=== PATIENT | male | born 1955 | race Caucasian/White ===

== ENCOUNTER 2019-01-27 09:54 | Observation (INO) ==
[2019-01-27] MEDS ORDERED: fentaNYL citrate 100 MCG/2 ML VIAL ONE ×3 (10:23→11:33)
[2019-01-27] MEDS ORDERED: NiCARDipine HCL INJ 2.5 MG/ML 10 ML AMP ONE (10:23)
[2019-01-27] MEDS ORDERED: HEPARIN (PORCINE) 1000 UNIT/ML 10 ML (CATH LAB USE ONLY) ONE ×2 (10:23→11:04)
[2019-01-27] MEDS ORDERED: MIDAZOLAM HCL 1 MG/ML 2ML VIAL ONE ×5 (10:24→11:33)
[2019-01-27] MEDS ORDERED: NITROGLYCERIN/D5W 100MCG/ML 20ML SYR ONE (10:24)
--- NOTE | 2019-01-27 10:30 | History & Physical Bridge Note ---
Date of Service January 27, 2019 History & Physical Bridge Note I have examined the patient, reviewed the History & Physical and in the interval since the performance of the History & Physical I have noted the following changes of clinical significance: no changes noted
--- NOTE | 2019-01-27 10:31 | Pre Anesthesia Assessment ---
Date of Service January 27, 2019 Pre Sedation Assessment Vital Signs Temp Pulse Resp BP Pulse Ox 01/27/19 10:07 98.1 F 68 14 190/104 H 97 Cardiovascular RRR, no murmur, no edema Respiratory normal respiratory effort, lungs clear to auscultation Pre-Sedation Airway Assessment Smoking Status: Current every day smoker Hx Sleep Apnea: No Hx Difficult Intubation: No Short, Thick Neck: No Thyromental Distance: > or= 3.5 Finger Breadths Oral Cavity: + Dentures Mallampati Class: III ASA: ASA3 NPO Status Date of Last Intake of Fluids: 01/27/19 Time of Last Intake of Fluids: 07:00 Last Oral Intake of Fluids Comment: sips with pills Date of Last Intake of Solid Food: 01/26/19 Time of Last Intake of Solid Foods: 22:00 Procedure Planning Contraindications for Sedation: none Current Medications Reviewed: Yes Notes The planned sedation has been discussed with the patient. Informed Consent was obtained. I have identified the patient, determined the appropriateness of sedation and have assessed the patient immediately prior to the procedure. All medicine(s) and interventions are by my order.
[2019-01-27] MEDS ORDERED: ADENOSINE IV SOLN 3 MG/ML 20 ML VIAL IV ONE (11:04)
[2019-01-27] MEDS ORDERED: CLOPIDOGREL BISULFATE 300 MG TAB ONE (12:09)
--- NOTE | 2019-01-27 12:10 | Post Anesthesia Assessment ---
Date of Service January 27, 2019 Post Sedation Assessment Vital Signs Temp Pulse Resp BP Pulse Ox 01/27/19 10:07 98.1 F 68 14 190/104 H 97 Recovery Score Activity: Moves 4 extremities Respiration: Deep Breath/Cough Circulation: +/-20% PreAnes Value Consciousness: Fully Awake Oxygen Saturation: O2 needed for >90% Discharge Sedation Level of Care: Fast Track Phase II Post Sedation Plan On clinical assessment, the patient appears to have tolerated the sedation without complications. Patient is recovering as anticipated. Patient will continue to be monitored by nursing and may be discharged when sedation discharge criteria are met per below protocol. Upon Completions of procedure and additional 15 minutes continue every 5 minute vital signs and the P.A.R. score; then discharge to a Phase I or Fast Track to Phase II per the following guidelines: * Discharge Patient to appropriate Phase II area if PAR is 8 or greater or return to pre- procedure baseline. The post - procedure orders will be as directed. * If PAR score is less than 8 or not return to pre-procedure baseline then patient will follow Phase I monitoring till PAR is reached for Phase II. The Phase I may be done in procedure room or may call to secure a Phase I area. * If naloxone or flumazenil are used for reversal, hold in Phase I for continued monitoring from when last reversal dose was given for a minimum of 60 minutes or longer pending the nurse and/or physician discretion of patient condition before discharge to Phase II. Please call the Sedation Physician to re-evaluate and complete post-note for discharge to Phase II area. Do NOT discharge from procedure sedation or Phase 1 until post- sedation evaluation note is complete by procedure /sedation MD Sedation Discharge Instructions to be given to the patient at discharge to home.
[2019-01-27] MEDS ORDERED: ACETAMINOPHEN 325 MG TAB PO PRN (12:14)
[2019-01-27] MEDS ORDERED: ONDANSETRON INJ 2 MG/ML 2 ML VIAL IV PRN (12:14)
--- NOTE | 2019-01-27 12:14 | Cardiac Catheterization ---
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 Cardiac Status Clinical evaluation leading to the procedure CAD Presenation: Positive Stress Test Anginal Classification: CCS III Heart Failure: No Cardiogenic Shock within 24 Hours: No Cardiac Arrest within 24 Hours: No Imaging Studies Past 6 Months: Yes Stress Studies Past 6 Months: Yes Standard Exercise Test: Yes - Positive Diagnostic Physicians Name: Michael Huerta MD Status: Elective Closure Device Percutaneous Entry Location: Radial Closure Device: Radial Band Recommendations: PCI without planned CABG PCI Indication: + Stress Test and Unstable Angina Lesion Segment Name: mid RCA Culprit Artery: Yes Stenosis Prior to Rx (%): 90 Chronic Total Occlusion: No IVUS: No FFR: No Pre-Procedure WENDY Flow: 3 Previously Treated Lesion: No Lesion Complexity: Non-High/Non-C Lesion Length (mm): 15 Thrombus Present: No Bifurcation Lesion: No Guidewire Across Lesion: Stenosis Post-Procedure (%): 0 Post-Procedure WENDY Flow: 3 Devices(s) Deployed: Yes Yes Lesion #2 Segment Name: Ostial OM1 Culprit Artery: Yes Stenosis Prior to Rx (%): 95 Chronic Total Occlusion: No IVUS: No FFR: No Pre-Procedure WENDY Flow: 3 Previously Treated Lesion: No Lesion Complexity: Non-High/Non-C Lesion Length (mm): 12 Thrombus Present: No Bifurcation Lesion: Yes Guidewire Across Lesion: Yes Stenosis Post-Procedure (%): 0 Post-Procedure WENDY Flow: 3 Devices(s) Deployed: Yes Intraprocedure Events Significant Disection: No Perforation: No Cardiac Cath Procedure Full Procedure Date January 27, 2019 Pre-Procedure Diagnosis Pre-Procedure Diagnosis: Angina and Positive Stress Test AUC Score AUC Score: 7 Post-Procedure Diagnosis Post-Procedure Diagnosis: Severe CAD, Successful PCI and Normal Intracardiac Pressures Procedure(s) Performed Procedure(s) Performed: Coronary Angiography, Left Heart Cath, Drug Eluting Stent and Fractional Flow [place] [employer] Michael Huerta MD Fur Glazer(s) Rikki Estimated Blood Loss Estimated Blood Loss: 20 Medication(s) Medication(s): Clopidogrel, Fentanyl, Heparin, Lidocaine 1%, Nicardipine, Nitroglycerin and Versed Summary of Findings Indication: Abnormal stress test, accelerating angina Access: 6Fr right radial artery slender Catheters: [place], EBU 3.5 guide, JR 4 guide Findings: LM - Moderate caliber, 30-40% distal stenosis LAD - Large caliber vessel, 20-30% proximal stenosis, 30-40% mid stenosis at take-off of 2nd septal. Distal vessel wraps around apex without significant disease. Small 1st diagonal subtotally occluded. Moderate 2nd diagonal with 60-70% ostial and mid segment disease, superior branch off D2 with 90% ostial stenosis. Circumflex - Moderate caliber vessel, 30% proximal stenosis, mid segment luminal irregularities. High OM1 with 95+% hazy, ostial stenosis. RCA - Dominant, 30-40% proximal to mid disease. 90% focal mid segment disease. Distal luminal irregularities. PDA, PLBs without significant disease. LVEDP -9 -- FFR of distal LM -- LM cannulated with EBU 3.5 guide BMW wire placed into distal LAD ACIST catheter placed into mid LAD Pd/Pa 0.97 FFR 0.88 -- PCI -- Antithrombotic therapy: Heparin, Clopidogrel Procedure: BMW wire removed from LAD and placed into OM1 [employer] 50 wire placed into distal circumflex. OM1 lesion predilated with 2.5 compliant balloon Dilated lesion stented with 2.5 x 12 [place] YVETTE Stent post-dilated with stent balloon. IC vasodilators administered for spasm Post procedure WENDY 3 flow, stent well expanded with minimal residual stenosis and no apparent cardiac complications. RCA cannulated with JR 4 guide BMW wire placed into distal RCA/PLB Mid RCA dilated with 2.5 balloon. Mid RCA stented with 3.5 x 15 [place] YVETTE Stent post dilated with 3.5 NC. Post procedure WENDY 3 flow, stent well expanded with minimal residual stenosis and no apparent cardiac complications. Arterial Closure: TR Band Summary: 1. Severe multi-vessel coronary artery disease - 90% mid RCA - 95% ostial OM1 - 30-40% left main (FFR 0.88). - 70% ostial 2nd diagonal 2. Normal intracardiac filling pressure 3. Successful PCI of high OM1 with single YVETTE (2.5 x 12 [place]). 4. Successful PCI of mid RCA with single YVETTE (3.5 x 15 [place]). 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 Maximize antianginal therapy for residual small branch vessel disease involving diagonals. Consult cardiac Rehab Hemodynamics Rest Ao:: 131/72/102 Final Ao: 133/69/96 LV: 116/9 Recommendations Recommendations: PCI without planned CABG Specimens Specimens: None Radiation Exposure (mGy) 3167 Contrast (mls) 165 Fluids (cc crystalloids) Fluids (cc crystalloids): 125 Drains Drains: None Anesthesia Moderate Procedural Complication(s) None Disposition PCU I attest to the content of the Intraoperative Record and any orders documented therein. Any exceptions are noted below.
[2019-01-27] MEDS ORDERED: OXYCODONE/ACETAMINOPHEN 5mg/325mg TAB PO PRN (12:18)
[2019-01-27] MEDS: SODIUM CHLORIDE 0.9% 1000ML 1,000 ML IV SCH ×2 (15:18→23:50)
[2019-01-27] MEDS: AMLODIPINE BESYLATE 5 MG TAB PO SCH (15:52)
[2019-01-28] MEDS: AMLODIPINE BESYLATE 5 MG TAB PO SCH (08:22)
[2019-01-28] MEDS ORDERED: PANTOprazole 40 MG TAB PO SCH (09:00)
[2019-01-28] MEDS ORDERED: MULTIVITAMIN TAB PO SCH (09:00)
[2019-01-28] MEDS ORDERED: AMLODIPINE BESYLATE 5 MG TAB PO SCH (09:00)
[2019-01-28] MEDS ORDERED: ATORVASTATIN 40 MG TAB PO SCH (09:00)
[2019-01-28] MEDS ORDERED: ASPIRIN 81 MG ECTAB PO SCH (09:00)
[2019-01-28] MEDS ORDERED: METOPROLOL SUCC 50MG EXT REL TAB PO SCH (09:00)
[2019-01-28] MEDS ORDERED: CLOPIDOGREL BISULFATE 75 MG TAB PO SCH (09:00)
--- NOTE | 2019-01-28 09:09 | Discharge Summary ---
Date of Service January 28, 2019 Admission HPI Per Admitting Provider Mr. Crane is a 63 year old male with a medical history significant for hypertension, dyslipidemia, GERD and tobacco use. Recently was seen in our office for evaluation of chest pain and abnormal stress ECG. Patient denies history of cardiovascular disease. Over the pas 6-8 months he developed exertional chest discomfort and shortness of breath. Chest pain is in the center of his chest. Initially symptoms only occurred with more strenuous exertion such a cutting grass. Symptoms have progressed and he now experienced them when walking up a flight of stairs or out to his mail box. Symptoms resolve in about 15 minutes of rest. He does not experience chest pain or dyspnea at rest. No orthopnea, PND or edema. No palpitations, lightheadedness, near syncope or syncope. No abnormal bleeding. Due to his symptoms PCP ordered a stress electrocardiogram which was performed on 01/22/19. This was positive with [address] depressions resolving 4 min into recovery. Patient had hypertensive response to exercise with peak BP to 240s. Nonlimiting exertional chest burning pain with peak stress. Exercised 6 min achieving 7 METS and 69% MPHR. Admitted on 01/27/19 after cardiac catheterization with PCI. Admission Exam (Per Admitting) Constitutional General: No acute distress, comfortable. HEENT: Head is normal. PERRLA. EOMI. Sclerae anicteric. Ears, nose and throat unremarkable. Mucous membranes moist. Neck: Normal carotid upstrokes, no bruits. No appreciable JVD. Lungs: Clear to auscultation bilaterally without rales, rhonchi or wheezes. Cardiac: Regular rate and rhythm. S1-S2 normal. No appreciable murmur, gallop or rub. Abdomen: Soft and nontender. Bowel sounds normal. No mass or organomegaly. No abdominal bruit. Extremities/vascular: Well perfused. No peripheral edema. Radial, DP and PT pulses 2+ bilaterally Skin: No rash or abnormal lesions. Normal turgor. Neurologic: Nonfocal Psychiatric: Affect appropriate. Alert and oriented. Discharge Data Consultations 01/27/19 12:17 Consult Cardiac Rehabilitation Routine Procedures Performed Operation Date: 01/27/19 11:00 Actual Procedures s Cineradiography w/Routine Exam - Venkatesh Huerta MD p Cath, Left with Cors and Vent - Venkatesh Huerta MD s Drug Eluting Stent SGl Vessel - Venkatesh Huerta MD s Drug Eluting Stent each ADDTL Vessel - Venkatesh Huerta MD Hospital Course (1) Coronary artery disease: --Severe multivessel CAD (90% mid RCA, 95% ostial OM1, 30-40% left main (FFR 0.88), 70% ostial 2nd diagonal); residual small branch disease --Post successful PCI of high OM1 (2.5 x 12 [place]) and mid RCA (3.5 x 15 [place]arte) 2. Hypertension--BP remains high 3. Dyslipidemia 4. Ongoing tobacco use Patient post cardiac catheterization 01/27/19 in the setting of exertional chest pain and abnormal stress ECG. Underwent successful PCI of high OM1 and mid RCA. Currently chest pain free. Right radial wrist access site without hematoma. Distal pulse and sensation intact. BP has been elevated and he was started on amlodipine. --OK to discharge home today with followup in our office in 2 weeks --Dual antiplatelet therapy with ASA and clopidogrel for minimum of 6 months; likely indefinitely given multivessel disease --High intensity statin --Continue metoprolol succinate 100 mg daily and amlodipine 10 mg daily, monitor BP at home --Smoking cessation, patient has no desire to quit at this time --Consult cardiac rehab
[2019-01-28] MEDS ORDERED: ENOXAPARIN INJ 40 MG/0.4 ML SYR SQ SCH (11:25)
[2019-01-29] MEDS ORDERED: AMLODIPINE BESYLATE 5 MG TAB PO SCH (09:00)
== END 2019-01-28 10:00 | disposition home or self-care (01) ==
LOC: CC 09:54 → 2S 09:54

== ENCOUNTER 2023-12-06 13:36 | Observation (INO) ==
[2023-12-06] MEDS: MAGNESIUM SULFATE / D5W 1 GM/100 ML BAG IV SCH ×2 (14:50→17:15)
[2023-12-06 15:06] LABS: Hematocrit (blood only) 43.9 % (42.0-52.0); Hemoglobin 15.4 g/dl (14.0-18.0); Mean Corpuscular Hemoglobin 32.1 pg (25.0-34.0); Mean Corpuscular Hgb Conc 35.1 g/dL (32.0-36.0); Mean Corpuscular Volume 91.5 fL (80.0-100.0); Mean Platelet Volume 11.8 fL (9.4-12.4); Platelet Count 209 K/uL (130-400); RDW Coefficient of Variation 12.7 % (11.5-14.5); RDW Standard Deviation 42.7 fL (36.4-46.3); White Blood Count 15.11 K/ul (4.8-10.8)
--- NOTE | 2023-12-06 15:19 | History & Physical Report ---
Date of Service December 06, 2023 Assessment & Plan (1) Hypomagnesemia: Plan: Critically low magnesium at 0.7 on 12/05 Patient reports he is currently asymptomatic Recent medication change: started on metformin on 11/19 and reports he has been having diarrhea since While he was given magnesium supplements for low mag prior to this (1.0 on 11/08), he also reports he takes omeprazole daily ?Renal wasting; urine electrolytes ordered, pending Magnesium sulfate 1 g IV x 5 (to be given via extended infusion) Magnesium oxide 400mg p.o. BID Hold omeprazole Trend Mag q4h for now A.m. CBC, BMP, Mag (2) Diarrhea: Plan: No recent antibiotic use or hospitalizations Hold metformin, and if diarrhea persists would obtain stool studies (3) Type 2 diabetes mellitus: Plan: Last A1c at 8.2% on 11/09/2023 SSI; with target BSG range 110-140mg/dL, CF 40, carb ratio 13 T2DM diet BSG ACHS Adjust regimen as needed (4) Leukocytosis: Plan: Leukocytosis at 15.11 with a lymphocytic predominance; afebrile No fever or infectious symptoms Unclear etiology (5) Hypertension: Plan: Continue isosorbide mononitrate, amlodipine, and metoprolol (6) Hyperlipidemia: Plan: Continue atorvastatin (7) COPD with emphysema: Plan: Continue home inhalers (8) H/O heart artery stent: Plan: Continue clopidogrel (9) Paroxysmal atrial fibrillation: Plan: Rate controlled on arrival Continue apixaban (10) Current every day smoker: Plan Disposition: Obs - Admit to [facility] telemetry DNR/DNI Heart healthy, T2DM diet VTE PPx: On apixaban History of Present Illness Chief Complaint: Abnormal labs/diagnostic testing Primary Care Provider: Xiomara Horner Sweta Alberto is a pleasant 68-year-old male with PMH of CAD s/p heart stent, T2DM, COPD, multiple lung nodules, tobacco use, HLD, and HTN. He presented on 12/05 at the behest of his PCP for critically low magnesium levels (0.9 on 12/04). No prior history of hypomagnesemia. Patient took all of his regular morning medications today. He has been on Nexium/omeprazole for the past 25 years. The only recent change in medication was that he was started on metformin a couple weeks ago as well as magnesium supplements. He reports he has been having diarrhea ever since starting this medication. No recent antibiotic use. He reports that he does have a liquidy stool, as well as intermittent formed stool. For instance, he had a bowel movement this morning that was formed, and then 20 minutes later he had diarrhea. Patient is a current everyday tobacco cigarette smoker; less than 1 PPD. No recent alcohol use. No supplemental oxygen at baseline. No sick contacts. No CPAP at night. Additionally, he does have GARCIA and productive cough, which he attributes to his emphysema. Patient is h ypertensive at 147/82 and mildly hypothermic at 36.0 C at time admission; vitals otherwise stable. ED course: Magnesium sulfate 1 g IV x 2 ROS: Patient endorses mild CHAMBERLAIN intermittently, intermittent CP (once per week; he describes it as very "minor"), GARCIA, productive cough (clear), diarrhea (since started taking metformin) Patient denies fever, chills, night-sweats, difficulty swallowing, dizziness, lightheadedness, SOB at rest, abdominal pain, N/V, melena, blood in the urine/stool, or neuropathy in the arms or legs. Allergies Allergy/AdvReac Type Severity Reaction Status Date / Time adhesive tape Allergy "tears my Verified 12/06/23 12:55 skin off" No Known Drug Allergies Allergy Verified 12/06/23 12:55 Home Medications Medication Instructions Recorded Confirmed Type amlodipine 10 mg tablet 10 mg PO QAM 08/16/22 12/06/23 History atorvastatin 80 mg tablet 80 mg PO HS #90 tabs 12/05/22 12/06/23 Rx isosorbide mononitrate 60 mg 60 mg PO QAM #90 tabs 02/14/23 12/06/23 Rx tablet,extended release 24 hr apixaban 5 mg tablet (Eliquis) 5 mg PO BID #180 tabs 03/16/23 12/06/23 Rx omeprazole 20 mg capsule,delayed 20 mg PO QAM #90 caps 09/13/23 12/06/23 Rx release umeclidinium 62.5 mcg-vilanterol 1 inh inhalation DAILY 3 months 09/25/23 12/06/23 Rx 25 mcg/actuation powdr for with 3 refills 90 days #180 ea inhalation (Anoro Ellipta) clopidogrel 75 mg tablet 75 mg PO QAM #90 tabs 11/30/23 12/06/23 Rx ezetimibe 10 mg tablet 10 mg PO QAM 12/06/23 12/06/23 History famotidine 40 mg tablet 40 mg PO DAILY #90 tabs 12/06/23 12/06/23 Rx metformin 500 mg tablet,extended 500 mg PO BIDM 12/06/23 12/06/23 History release 24 hr metoprolol succinate 100 mg 100 mg PO QAM 12/06/23 12/06/23 History tablet,extended release 24 hr Past Med/Surg History Problem List Diarrhea Paroxysmal atrial fibrillation Leukocytosis Hypomagnesemia Encounter for cosmetic procedure Type 2 diabetes mellitus Encounter for pre-operative examination Coronary artery disease Dizziness Hypertension Hyperlipidemia Current every day smoker Chronic low back pain Degenerative disc disease, lumbar Multiple lung nodules Nicotine dependence, cigarettes, uncomplicated Multiple pulmonary nodules COPD with emphysema Exertional shortness of breath Obesity Hypersomnia H/O heart artery stent 2019, x2 stents, [facility] Medical History Scoliosis Hx of renal calculi Ocular migraine Emphysema lung COPD (chronic obstructive pulmonary disease) Hyperlipidemia Hx of chest pain Atrial fibrillation Hypertension GERD (gastroesophageal reflux disease) Surgical History Hx of tooth extraction History of esophagogastroduodenoscopy (EGD) Hx of cardiac catheterization Family History Brother Colorectal cancer Prostate cancer Father Myocardial infarction Denies family history of Ovarian cancer Breast cancer Social History Smoking Status: Current every day smoker Tobacco Type: Cigarettes Age Started Using Tobacco: 16; packs per day: 0.75; Cigarettes Per Day: 16; Second Hand Exposure: No; Do You Dip or Chew Tobacco: No; Hx Alcohol Use: Yes Hx Substance Use: No Preferred Language: Nigerien Communication Ability: Effective Visual Impairment: Limited Hearing Ability: Normal 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 Beliefs That Will Affect Care: None marital status: Current Living Situation: Spouse current occupational status: retired current occupation: retired Feels Safe at Home: Yes Childhood Exposure to Second-Hand Smoke: Yes Dental Care, Regularly: No Physical Activity Frequency: Does not Exercise Seatbelt Use: always Sunscreen Use: No Assistive Devices: Glasses and Other Review of Systems Review of Systems: See HPI above Physical Exam Physical Exam: General: no acute distress; non-toxic appearing; well-nourished; cooperative HEENT: normocephalic, atraumatic; no scleral icterus; PERRLA w/ EOMs intact; vision and hearing grossly intact Neck: supple; no lymphadenopathy; trachea midline Skin: warm, dry without signs of tenting; no cyanosis; no rashes, bruising, lesions, or erythema noted CV: chest wall NTP; RRR; S1/S2 normal; no murmurs/rubs/gallops; pulses intact and symmetric at radial, DP, and PT Lungs: no acute respiratory distress; symmetrical chest wall expansion; clear breath sounds across all lung arzola w/o adventitious sounds; no wheezing ABD: Soft, NTP; BS present; no rebound/guarding; no distention MSK: no tics or fasciculations; no edema noted in the LEs b/l, nonerythematous Neuro: A&Ox3; normal mood and affect; fluent speech; no focal deficits; sensation grossly intact in the LEs b/l Results & Data Results & Data Vital Signs (Past 12 Hours) Vital Signs Temp Pulse Resp BP Pulse Ox O2 Del Method 12/06/23 13:51 36.0 C L 79 16 147/82 H 94 Room Air Code Status & VTE Plan Code Status DNR/DNI VTE Prophylaxis Plan VTE Prophylaxis will be ordered: Yes Supervising Physician Co-Signing Physician Notes Patient seen and examined, chart reviewed, case discussed with Bart Pond PA-C and I agree with the assessment and plan as above except as otherwise noted Labs and images reviewed 68-year-old male with a past medical history of COPD, type II DM, CAD history PCI who presents on referral for critically low magnesium levels. Patient reports he has had some intermittent loose diarrhea since starting metformin; however his hypomagnesemia preceded this and is stools have been loose but not every day. Degree of hypomagnesemia is disproportionate to his diarrhea, although this may be contributing. He has been on a PPI for GERD, will treat with Pepcid twice daily and attempt to down titrate his PPI due to hypomagnesemia. He is not on his loop/thiazide diuretics. Does have diabetes but this does not appear uncontrolled, last A1c was reasonable and BSG less than 100 on admission. Will obtain Magnesium levels to assess for potential renal wasting; this will be at least partially elevated due to his IV magnesium repletion. Remaining 3g IV given over extended duration to minimize renal losses. Agree w/ above PG Care Time/CCT Total # of Minutes Spent Total Time Spent with Patient: Total time spent is greater than 50% in coordination of care (as documented) at patient's floor/unit and/or counseling patient: Coding [place] [address] INT INP/OBS CARE 3/75MIN Patient Type Established Medical Decision Making High Complexity Diagnoses Hypomagnesemia E83.42 Diarrhea R19.7 Type 2 diabetes mellitus E11.9 Leukocytosis D72.829 Hypertension I10 Hyperlipidemia E78.5 COPD with emphysema J43.9 H/O heart artery stent Z95.5 Paroxysmal atrial fibrillation I48.0 Current every day smoker F17.200
[2023-12-06 15:28] LABS: Basophils # (auto) 0.08 K/uL (0.00-0.20); Basophils % (auto) 0.5 %; Eosinophils # (auto) 0.18 K/uL (0.00-0.50); Eosinophils % (auto) 1.2 %; Immature Granulocytes # (auto) 0.07 K/uL (0.01-0.20); Immature Granulocytes % (auto) 0.5 %; Lymphocytes # (auto) 5.06 K/uL (1.20-3.40); Lymphocytes % (auto) 33.5 %; Monocytes # (auto) 1.84 K/uL (0.11-0.59); Monocytes % (auto) 12.2 %; Neutrophils # (auto) 7.88 K/uL (1.40-6.50); Neutrophils % (auto) 52.1 %
[2023-12-06 16:25] LABS: Calcium 8.1 mg/dl (8.6-10.3); Potassium 3.4 mmol/L (3.5-5.1)
[2023-12-06 16:31] LABS: BUN Creatinine Ratio 12.8 (10-20); Creatinine Clr Calc Pharmacy 111.4 ml/min; Est GFR (African American) 104.7 ml/min; Est GFR (Non-African American) 90.4 ml/min
[2023-12-06 16:34] LABS: Albumin Level 5.1 gm/dl (3.4-5.0); Bilirubin,Total 0.8 mg/dl (0.2-1.0); Globulin 2.6 gm/dl (2.5-4.0); Magnesium 0.7 mg/dl (1.7-2.4); Total Protein 7.7 gm/dl (6.0-8.3)
--- NOTE | 2023-12-06 17:14 | Emergency Department Note ---
History of Present Illness General Chief Complaint: Abnormal Labs/Diagnostic Testing Stated Complaint: CRITICALLY LOW MAGNESIUM, REF BY DOC Time Seen by Provider: 12/06/23 14:33 History of Present Illness Provider Complaint: + abnormal lab Returns today for: + called because of abnormal lab/test Description of abnormal result: low magnesium Context: + called for abnormal lab result Associated symptoms: + malaise and + other (weakness. diarrhea); no fever, no chills, no chest pain, no shortness of breath, no rash, no nausea or no abdominal pain Home Medications Medication Instructions Recorded Confirmed Type amlodipine 10 mg tablet 10 mg PO QAM 08/16/22 12/06/23 History atorvastatin 80 mg tablet 80 mg PO HS #90 tabs 12/05/22 12/06/23 Rx isosorbide mononitrate 60 mg 60 mg PO QAM #90 tabs 02/14/23 12/06/23 Rx tablet,extended release 24 hr apixaban 5 mg tablet (Eliquis) 5 mg PO BID #180 tabs 03/16/23 12/06/23 Rx omeprazole 20 mg capsule,delayed 20 mg PO QAM #90 caps 09/13/23 12/06/23 Rx release umeclidinium 62.5 mcg-vilanterol 1 inh inhalation DAILY 3 months 09/25/23 12/06/23 Rx 25 mcg/actuation powdr for with 3 refills 90 days #180 ea inhalation (Anoro Ellipta) clopidogrel 75 mg tablet 75 mg PO QAM #90 tabs 11/30/23 12/06/23 Rx ezetimibe 10 mg tablet 10 mg PO QAM 12/06/23 12/06/23 History famotidine 40 mg tablet 40 mg PO DAILY #90 tabs 12/06/23 12/06/23 Rx metformin 500 mg tablet,extended 500 mg PO BIDM 12/06/23 12/06/23 History release 24 hr metoprolol succinate 100 mg 100 mg PO QAM 12/06/23 12/06/23 History tablet,extended release 24 hr Allergies Allergy/AdvReac Type Severity Reaction Status Date / Time adhesive tape Allergy "tears my Verified 12/06/23 12:55 skin off" No Known Drug Allergies Allergy Verified 12/06/23 12:55 Past Med/Surg History Problem List Diarrhea Paroxysmal atrial fibrillation Leukocytosis Hypomagnesemia (Acute) Encounter for cosmetic procedure Type 2 diabetes mellitus Encounter for pre-operative examination Coronary artery disease Dizziness Hypertension Hyperlipidemia Current every day smoker Chronic low back pain Degenerative disc disease, lumbar Multiple lung nodules Nicotine dependence, cigarettes, uncomplicated Multiple pulmonary nodules COPD with emphysema Exertional shortness of breath Obesity Hypersomnia H/O heart artery stent 2019, x2 stents, [facility] Medical History Scoliosis Hx of renal calculi passed on own Ocular migraine hx-none recently Emphysema lung f/u ANKIT Mittal COPD (chronic obstructive pulmonary disease) Hyperlipidemia Hx of chest pain 2019, [facility], had cardiac cath w/2 stents; f/u LINDSAY Laureano Atrial fibrillation currently on eliquis Hypertension GERD (gastroesophageal reflux disease) Surgical History Hx of tooth extraction History of esophagogastroduodenoscopy (EGD) Hx of cardiac catheterization 2019, [facility], x2 stents; f/u LINDSAY Laureano 11/2021, [facility], no stents Family History Brother Colorectal cancer Prostate cancer Father Myocardial infarction Denies family history of Ovarian cancer Breast cancer Social History Smoking Status: Current every day smoker Tobacco Type: Cigarettes Age Started Using Tobacco: 16; packs per day: 0.75; Cigarettes Per Day: 16; Second Hand Exposure: No; Do You Dip or Chew Tobacco: No; Hx Alcohol Use: Yes Hx Substance Use: No Preferred Language: Turkmen Communication Ability: Effective Visual Impairment: Limited Hearing Ability: Normal Motor Runner Required: No Beliefs That Will Affect Care: None marital status: Current Living Situation: Spouse current occupational status: retired current occupation: retired Feels Safe at Home: Yes Childhood Exposure to Second-Hand Smoke: Yes Dental Care, Regularly: No Physical Activity Frequency: Does not Exercise Seatbelt Use: always Sunscreen Use: No Assistive Devices: Glasses and Other Physical Exam 2 Vital Signs: Vital Signs - 24 hr 12/06/23 13:51 12/06/23 16:07 12/06/23 16:35 Temperature 36.0 C L Temperature Source Temporal Artery Sc an Pulse Rate 79 68 68 Respiratory Rate 16 24 Respiratory Effort / Characteristics Non-Labored Sponta neous Respiratory Depth Normal Blood Pressure 147/82 H 138/72 Blood Pressure Sheron n 103 92 Pulse Oximetry 94 93 Oxygen Delivery Me thod Room Air Sepsis Recent Feve r Within 48 Hours No Sepsis New/Unexpla ined Change in Men santiago Status No Sepsis Action Take n by Nursing No Action Required Physical Exam: Physical Exam GENERAL: oriented to person, place, and time. appears well-developed and well- nourished. HENT: Exam performed. - Head: Normocephalic and atraumatic. EYES: Conjunctivae and EOM are normal. Right eye exhibits no discharge. Left eye exhibits no discharge. No scleral icterus. NECK: Normal range of motion. Neck supple. No JVD present. CV: Normal rate, regular rhythm, normal heart sounds and intact distal pulses. There is no peripheral edema. Palpable radial pulses bue. PULM/CHEST: Effort normal and breath sounds normal. No respiratory distress. No stridor. no wheezes. no rales. ABD: The abdomen is soft. There is no tenderness. NEURO: Motor and sensation grossly intact. SKIN: Skin is warm and dry. He is not diaphoretic. PSYCH: normal mood and affect. Behavior is normal. Judgment and thought content normal. Course Course 1433: The patient was evaluated in room B2. A complete history and physical exam was performed Cardiac monitoring: An order was placed for continuous cardiac monitoring. The monitor shows a rate of 80 with sinus rhythm interpreted by me External medical records reviewed. Patient's magnesium yesterday was 0.9. Potassium was within normal limits. Magnesium repletion was started in the emergency department patient be admitted to the hospitalist team. Administered Medications Discontinued Medications Magnesium Sulfate/Dextrose (Magnesium Sulfate / D5w) 1 gm in 100 mls @ 100 mls/hr IV Q1H BUTCH Stop: 12/06/23 16:38 Last Admin: 12/06/23 16:30 Dose: 100 mls/hr Documented By: Infusion: 12/06/23 16:30 Dose: Infused Documented By: Admin: 12/06/23 14:50 Dose: 100 mls/hr Documented By: SAM Medical Decision Making Laboratory Data Attestation: I reviewed the patient's lab results. 12/06/23 14:40 12/06/23 14:40 Lab Results 12/06/23 Range/Units 14:40 WBC 15.11 H (4.8-10.8) K/ul RBC 4.80 (4.70-6.10) M/uL Hgb 15.4 (14.0-18.0) g/dl Hct 43.9 (42.0-52.0) % MCV 91.5 (80.0-100.0) fL MCH 32.1 (25.0-34.0) pg MCHC 35.1 (32.0-36.0) g/dL RDW Std Deviation 42.7 (36.4-46.3) fL RDW Coeff of Sinan 12.7 (11.5-14.5) % Plt Count 209 (130-400) K/uL MPV 11.8 (9.4-12.4) fL Immature Gran % (Auto) 0.5 % Neut % (Auto) 52.1 % Lymph % (Auto) 33.5 % [place] % (Auto) 12.2 % Eos % (Auto) 1.2 % Baso % (Auto) 0.5 % Neut # (Auto) 7.88 H (1.40-6.50) K/uL Lymph # (Auto) 5.06 H (1.20-3.40) K/uL [place] # (Auto) 1.84 H (0.11-0.59) K/uL Eos # (Auto) 0.18 (0.00-0.50) K/uL Baso # (Auto) 0.08 (0.00-0.20) K/uL Immature Gran # (Auto) 0.07 (0.01-0.20) K/uL Sodium 146 H (136-145) mmol/L Potassium 3.4 L (3.5-5.1) mmol/L Chloride 106 (98-107) mmol/L Carbon Dioxide 28 (21-32) mmol/L Anion Gap 12 H (3-11) BUN 11 (6-23) mg/dl Creatinine 0.86 (0.6-1.4) mg/dl Est Cr Clr Drug Dosing 111.4 ml/min Est GFR ( Amer) 104.7 ml/min Est GFR (Non-Af Amer) 90.4 ml/min BUN/Creatinine Ratio 12.8 (10-20) Glucose 63 L (70-99(Fasting)) mg/dl Calcium 8.1 L (8.6-10.3) mg/dl Magnesium 0.7 L* (1.7-2.4) mg/dl Total Bilirubin 0.8 (0.2-1.0) mg/dl AST 22 (13-39) U/L ALT 34 (7-52) U/L Alkaline Phosphatase 81 (34-104) U/L Total Protein 7.7 (6.0-8.3) gm/dl Albumin 5.1 H (3.4-5.0) gm/dl Globulin 2.6 (2.5-4.0) gm/dl Albumin/Globulin Ratio 2.0 (0.9-2) ECG Data Attestation: I personally reviewed and interpreted this ECG as follows: Rate (beats per minute): 82 Rhythm: normal sinus Findings: no ST depression, no ST elevation or no prolonged QT MDM Narrative The patient was evaluated in room B2. A complete history and physical exam was performed Cardiac monitoring: An order was placed for continuous cardiac monitoring. The monitor shows a rate of 80 with sinus rhythm interpreted by me External medical records reviewed. Patient's magnesium yesterday was 0.9. Potassium was within normal limits. Magnesium repletion was started in the emergency department patient be admitted to the hospitalist team. Impression & Plan Hypomagnesemia Discharge Plan Visit Data Chief Complaint: Abnormal Labs/Diagnostic Testing Stated Complaint: CRITICALLY LOW MAGNESIUM, REF BY DOC ED Provider: Huan Santso Discharge Problem: Hypomagnesemia Patient Disposition: Admitted As Inpatient Forms Stand Alone Forms: My [facility] Prescriptions Prescriptions: No Action atorvastatin 80 mg tablet 80 mg PO HS Qty: 90 3RF isosorbide mononitrate 60 mg tablet extended release 24 hr 60 mg PO QAM Qty: 90 3RF Eliquis 5 mg tablet 5 mg PO BID Qty: 180 3RF omeprazole 20 mg capsule,delayed release(DR/EC) 20 mg PO QAM Qty: 90 3RF clopidogrel 75 mg tablet 75 mg PO QAM Qty: 90 3RF Anoro Ellipta 62.5-25 mcg/actuation blister with device 1 inh inhalation DAILY 90 Days Qty: 180 4RF famotidine 40 mg tablet 40 mg PO DAILY Qty: 90 3RF Rx Instructions: new order hasnt started amlodipine 10 mg tablet 10 mg PO QAM ezetimibe 10 mg tablet 10 mg PO QAM metformin 500 mg tablet extended release 24 hr 500 mg PO BIDM metoprolol succinate 100 mg tablet extended release 24 hr 100 mg PO QAM Referrals Referrals: Xiomara Sol DO [Primary Care Provider] -
[2023-12-06] MEDS: POTASSIUM CHLORIDE 10 MEQ TABCR PO STA (18:01)
[2023-12-06 19:01] LABS: Urine Potassium 103.9 mmol/L
[2023-12-06] MEDS ORDERED: DEXTROSE 50% 50 ML SYRINGE IV PRN (19:49)
[2023-12-06] MEDS ORDERED: GLUCAGON FOR INJ 1 MG VIAL SQ PRN (19:49)
[2023-12-06] MEDS ORDERED: CARBOHYDRATES FOR HYPOGLYCEMIA PO PRN (19:49)
[2023-12-06] MEDS ORDERED: GLUCOSE 10 TAB/TUBE PO PRN (19:49)
[2023-12-06] MEDS ORDERED: ACETAMINOPHEN 325 MG TAB PO PRN (19:49)
[2023-12-06] MEDS ORDERED: GLUCOSE 40% GEL 15 GM TUBE PO PRN (19:49)
[2023-12-06] MEDS: INSULIN ASPART PER UNIT CHARGE SC SCH (21:09)
[2023-12-06] MEDS: MAGNESIUM OXIDE 400 MG TAB PO SCH (21:16)
[2023-12-06] MEDS: APIXABAN 5 MG TABLET PO SCH (21:16)
[2023-12-06] MEDS: ATORVASTATIN 40 MG TAB PO SCH (21:17)
[2023-12-06 22:53] VITALS: RESP 18
[2023-12-07 06:34] LABS: Basophils # (auto) 0.07 K/uL (0.00-0.20); Basophils % (auto) 0.6 %; Eosinophils # (auto) 0.22 K/uL (0.00-0.50); Eosinophils % (auto) 1.8 %; Hemoglobin 15.2 g/dl (14.0-18.0); Immature Granulocytes # (auto) 0.05 K/uL (0.01-0.20); Immature Granulocytes % (auto) 0.4 %; Lymphocytes # (auto) 3.15 K/uL (1.20-3.40); Lymphocytes % (auto) 25.1 %; Mean Corpuscular Hemoglobin 32.9 pg (25.0-34.0); Mean Corpuscular Hgb Conc 36.2 g/dL (32.0-36.0); Mean Corpuscular Volume 90.9 fL (80.0-100.0); Mean Platelet Volume 12.9 fL (9.4-12.4); Monocytes # (auto) 1.36 K/uL (0.11-0.59); Monocytes % (auto) 10.8 %; Neutrophils # (auto) 7.71 K/uL (1.40-6.50); Neutrophils % (auto) 61.3 %; Platelet Count 152 K/uL (130-400); RDW Coefficient of Variation 12.6 % (11.5-14.5); RDW Standard Deviation 41.6 fL (36.4-46.3); Red Blood Count 4.62 M/uL (4.70-6.10); White Blood Count 12.56 K/ul (4.8-10.8)
[2023-12-07 06:50] LABS: Anion Gap 9 (3-11); BUN Creatinine Ratio 12.5 (10-20); Blood Urea Nitrogen 9 mg/dl (6-23); Calcium 7.9 mg/dl (8.6-10.3); Carbon Dioxide 28 mmol/L (21-32); Chloride 105 mmol/L (98-107); Est GFR (African American) 112.7 ml/min; Est GFR (Non-African American) 97.2 ml/min; Glucose 102 mg/dl (70-99(Fasting)); Magnesium 1.9 mg/dl (1.7-2.4); Sodium 142 mmol/L (136-145)
[2023-12-07 07:20] VITALS: PULSE 65
[2023-12-07 07:51] VITALS: BP 146/74; TEMP 98.1; O2SAT 94
[2023-12-07] MEDS: FAMOTIDINE 40 MG TABLET PO SCH (08:12)
[2023-12-07] MEDS: EZETIMIBE 10 MG TAB PO SCH (08:12)
[2023-12-07] MEDS: ISOSORBIDE MONO EXTENDED REL 60 MG TABCR PO SCH (08:12)
[2023-12-07] MEDS: amLODIPine BESYLATE 5 MG TAB PO SCH (08:13)
[2023-12-07] MEDS: CLOPIDOGREL BISULFATE 75 MG TAB PO SCH (08:13)
[2023-12-07] MEDS: METOPROLOL SUCC 50MG EXT REL TAB PO SCH (08:13)
[2023-12-07] MEDS: UMECLIDINIUM/VILANTEROL 62.5/25MCG 7 PUFFS/INHALER INH SCH (08:13)
[2023-12-07] MEDS: NICOTINE 21 MG/24 HR TDSY TD SCH (09:36)
--- NOTE | 2023-12-07 10:43 | Discharge Summary ---
Date of Service December 07, 2023 Admission HPI Per Admitting Provider Alberto is a pleasant 68-year-old male with PMH of CAD s/p heart stent, T2DM, COPD, multiple lung nodules, tobacco use, HLD, and HTN. He presented on 12/05 at the behest of his PCP for critically low magnesium levels (0.9 on 12/04). No prior history of hypomagnesemia. Patient took all of his regular morning medications today. He has been on Nexium/omeprazole for the past 25 years. The only recent change in medication was that he was started on metformin a couple weeks ago as well as magnesium supplements. He reports he has been having diarrhea ever since starting this medication. No recent antibiotic use. He reports that he does have a liquidy stool, as well as intermittent formed stool. For instance, he had a bowel movement this morning that was formed, and then 20 minutes later he had diarrhea. Patient is a current everyday tobacco cigarette smoker; less than 1 PPD. No recent alcohol use. No supplemental oxygen at baseline. No sick contacts. No CPAP at night. Additionally, he does have GARCIA and productive cough, which he attributes to his emphysema. Patient is hypertensive at 147/82 and mildly hypothermic at 36.0 C at time admission; vitals otherwise stable. ED course: Magnesium sulfate 1 g IV x 2 ROS: Patient endorses mild CHAMBERLAIN intermittently, intermittent CP (once per week; he describes it as very "minor"), GARCIA, productive cough (clear), diarrhea (since started taking metformin) Patient denies fever, chills, night-sweats, difficulty swallowing, dizziness, lightheadedness, SOB at rest, abdominal pain, N/V, melena, blood in the urine/stool, or neuropathy in the arms or legs. Admission Exam Per Admitting Provider General: no acute distress; non-toxic appearing; well-nourished; cooperative HEENT: normocephalic, atraumatic; no scleral icterus; PERRLA w/ EOMs intact; vision and hearing grossly intact Neck: supple; no lymphadenopathy; trachea midline Skin: warm, dry without signs of tenting; no cyanosis; no rashes, bruising, lesions, or erythema noted CV: chest wall NTP; RRR; S1/S2 normal; no murmurs/rubs/gallops; pulses intact and symmetric at radial, DP, and PT Lungs: no acute respiratory distress; symmetrical chest wall expansion; clear breath sounds across all lung arzola w/o adventitious sounds; no wheezing ABD: Soft, NTP; BS present; no rebound/guarding; no distention MSK: no tics or fasciculations; no edema noted in the LEs b/l, nonerythematous Neuro: A&Ox3; normal mood and affect; fluent speech; no focal deficits; sensation grossly intact in the LEs b/l Principal Diagnosis Hypomagnesemia of unclear etiology Discharge Data Allergies Allergy/AdvReac Type Severity Reaction Status Date / Time adhesive tape Allergy "tears my Verified 12/06/23 12:55 skin off" No Known Drug Allergies Allergy Verified 12/06/23 12:55 Consultations 12/06/23 14:39 ED Decision to Admit Stat Hospital Course (1) Hypomagnesemia: Critically low magnesium at 0.7 on 12/05 Patient reports he is currently asymptomatic Recent medication change: started on metformin on 11/19 and reports he has been having diarrhea since While he was given magnesium supplements for low mag prior to this (1.0 on 11/08), he also reports he takes omeprazole daily ?Renal wasting; urine electrolytes ordered, pending Magnesium sulfate 1 g IV x 5 (to be given via extended infusion) Magnesium oxide 400mg p.o. BID Hold omeprazole Patient did not give me the time to make a diagnosis or figure out why he has hypomagnesemia. He wanted to leave AGAINST MEDICAL ADVICE Allowed him to leave AMA on magnesium tablets and held omeprazole upon discharge (2) Diarrhea: No recent antibiotic use or hospitalizations Metformin was held in the hospital Patient says that his diarrhea is unpredictable. He could have good days or bad days. Resume metformin upon discharge This can be addressed by his PCP outpatient As stated above, the patient did not allow me time to make a diagnosis and left AGAINST MEDICAL ADVICE (3) Type 2 diabetes mellitus: Resumed home regimen (4) Leukocytosis: Leukocytosis at 15.11 with a lymphocytic predominance; afebrile No fever or infectious symptoms Unclear etiology (5) Hypertension: Continue isosorbide mononitrate, amlodipine, and metoprolol (6) Hyperlipidemia: Continue atorvastatin (7) COPD with emphysema: Continue home inhalers (8) H/O heart artery stent: Continue clopidogrel (9) Paroxysmal atrial fibrillation: Rate controlled on arrival Continue apixaban (10) Current every day smoker: Nicotine patch ordered. Patient still was restless and wanted to leave Plan Patient left AMA Total Time Total Time Spent Total Time Spent (In Minutes): 35 Discharge Plan Discharge Items Patient Disposition: Against Medical Advice Reason For Visit: HYPOMAGNESEMIA Discharge Diagnosis: Hypomagnesemia of unclear etiology Activity: Resume your previous activity Non-emergency contact: Primary Care Provider Call non-emergency contact if: you have any medication questions and your symptoms worsen Follow-up/Referrals: Xiomara Sol DO [Primary Care Provider] - 12/14/23 10:30 am Diet: Carb Consistent or DM2 and Heart Healthy Addtl Attending Provider Instructions: - Advised to follow-up with PCP in 1 week Pending Studies at Discharge: Yes Studies:: urine magnesium, urine creatinine Stand-Alone Forms: My [employer], Smoking Cessation Medications and DC Order Prescriptions: New magnesium oxide 400 mg (241.3 mg magnesium) Tablet 400 mg PO BID 30 Days Qty: 60 0RF Continued atorvastatin 80 mg tablet 80 mg PO HS Qty: 90 3RF isosorbide mononitrate 60 mg tablet extended release 24 hr 60 mg PO QAM Qty: 90 3RF Eliquis 5 mg tablet 5 mg PO BID Qty: 180 3RF clopidogrel 75 mg tablet 75 mg PO QAM Qty: 90 3RF Anoro Ellipta 62.5-25 mcg/actuation blister with device 1 inh inhalation DAILY 90 Days Qty: 180 4RF famotidine 40 mg tablet 40 mg PO DAILY Qty: 90 3RF Rx Instructions: new order hasnt started amlodipine 10 mg tablet 10 mg PO QAM ezetimibe 10 mg tablet 10 mg PO QAM metformin 500 mg tablet extended release 24 hr 500 mg PO BIDM metoprolol succinate 100 mg tablet extended release 24 hr 100 mg PO QAM Discontinued omeprazole 20 mg capsule,delayed release(DR/EC) 20 mg PO QAM Qty: 90 3RF Discharge Orders: Left Against Medical Advice (Routine); Ordered 12/07/23 Ordered By: Theresa Saavedra/Other Patient Handouts: High Blood Sugar (Hyperglycemia), Hypoglycemia (Low Blood Sugar), Diabetes: Meal Planning, Type 2 Diabetes Admission Data Admit Date/Time: 12/06/23 15:41 Attending Provider: Theresa Mcwilliams Admclaudia Provider: Ab Butler Primary Care Provider: Xiomara Sol Other Providers: Ab Butler
--- NOTE | 2023-12-07 13:17 | Electrocardiogram Report ---
Test Reason : Blood Pressure : */* mmHG Vent. Rate : 82 BPM Atrial Rate : 82 BPM P-R Int : 150 ms QRS Dur : 94 ms QT Int : 384 ms P-R-T Axes : 7 36 -2 degrees QTcB Int : 448 ms Normal sinus rhythm Nonspecific ST abnormality Abnormal ECG When compared with ECG of 10-May-2023 08:30, (unconfirmed) Premature ventricular complexes are no longer Present Nonspecific T wave abnormality now evident in Inferior leads Nonspecific T wave abnormality no longer evident in Lateral leads Confirmed by Bridger Shafer ([id number]) on 12/07/2023 1:16:34 PM Referred By: Xiomara Sol Confirmed By: Bridger Shafer
[2023-12-11 14:57] LABS: Magnesium, Random Urine 1 mg/g creat (22-130)
== END 2023-12-07 10:58 | disposition left against medical advice (07) ==
LOC: 2N 13:36 → ED 13:36 → SUATTDRO 15:41 → 2N 18:28